=== PATIENT | male | born 1940 | race Caucasian/White ===

== ENCOUNTER 2019-01-04 16:04 | Emergency (ER) | payer MEDICARE, OTHER ==
[~2019-01-04] VITALS: Ht 180.3 cm; Wt 96.6 kg
[2019-01-04 17:04] LABS: BILIRUBIN,URINE NEGATIVE (NEGATIVE); CLARITY,URINE SL CLOUDY (CLEAR); COLOR,URINE YELLOW (YELLOW); KETONES,URINE NEGATIVE (NEGATIVE); LEUKOCYTE ESTERASE ,URINE TRACE (NEGATIVE); NITRITE,URINE NEGATIVE (NEGATIVE); PROTEIN,URINE DIPSTICK NEGATIVE (NEGATIVE); URINE UROBILINOGEN 0.2 mg/dL (0.2 - 1)
[2019-01-04 17:15] LABS: BACTERIA,URINE FEW /HPF
--- NOTE | 2019-01-04 17:56 | NUR ---
Post void residual noted to be 51 mL's. Patient states he feels like he emptied his bladder appropriately.
[2019-01-04] MEDS ORDERED: CEFDINIR300 MG PO (18:25)
[2019-01-04] MEDS ORDERED: FLOMAX0.4 MG PO (18:25)
[2019-01-04 18:30] VITALS: BP 154/81
== END 2019-01-04 18:35 | disposition home or self-care (01) ==
LOC: ER 16:04
DX: R30.0 Dysuria (principal); N30.90 Cystitis, unspecified without hematuria; N40.0 Benign prostatic hyperplasia without lower urinary tract symptoms; I25.10 Atherosclerotic heart disease of native coronary artery without angina pectoris; I10 Essential (primary) hypertension; E78.5 Hyperlipidemia, unspecified; Z95.1 Presence of aortocoronary bypass graft
CPT/HCPCS: 81001; 87086; 87186; 99283

== ENCOUNTER → 2019-05-12 | Day surgery (SDC) | payer MEDICARE, OTHER ==
[2019-05-10 11:59] LABS: BASOPHILS % 0.2 % (0.0-1.0); EOSINOPHILS # (AUTO) 0.2 (0.0-0.4); EOSINOPHILS % 2.9 % (0.0-6.0); HEMATOCRIT 34.2 % (38.2-49.6); HEMOGLOBIN 10.7 g/dL (14.0-18.0); LYMPHOCYTES # (AUTO) 1.1 (1.0-3.2); LYMPHOCYTES % 17.2 % (18.0-39.1); MEAN CORPUSCULAR HEMOGLOBIN 20.5 pg (28-32); MEAN CORPUSCULAR HGB CONC 31.3 g/dL (31-35); MEAN CORPUSCULAR VOLUME 65.5 fL (81-99); MONOCYTES # (AUTO) 0.6 (0.2-0.8); MONOCYTES % 9.4 % (4.4-11.3); NEUTROPHILS # (AUTO) 4.6 (2.1-6.9); NEUTROPHILS % 69.8 % (38.7-80.0); PLATELET COUNT 222 x10e3/uL (140-360); RED BLOOD COUNT 5.22 x10e6/uL (4.3-5.7); RED CELL DISTRIBUTION WIDTH 16.5 % (11.7-14.4)
[2019-05-10 12:19] LABS: INR 0.98; PROTHROMBIN TIME 13.5 seconds (11.9-14.5)
[2019-05-10 12:20] LABS: PARTIAL THROMBOPLASTIN TIME 29.9 seconds (23.8-35.5)
[2019-05-10 12:21] LABS: ALBUMIN 4.2 g/dL (3.5-5.0); ALBUMIN/GLOBULIN RATIO 1.1 (0.8-2.0); ANION GAP 15.2 mmol/L (8-16); CALCIUM 9.7 mg/dL (8.4-10.2); CREATININE, SERUM 1.91 mg/dL (0.72-1.25); POTASSIUM 5.2 mmol/L (3.5-5.1)
[2019-05-10 12:22] LABS: CHOL/HDL RATIO 3.9 (3.9-4.7)
--- NOTE | 2019-05-10 13:44 | Diagnostic Imaging Report ---
EXAMINATION: CHEST 2 VIEWS INDICATION: Preop. Heart catheter ^PREOP FOR LEFT HEART CATHETERIZATION COMPARISON: None FINDINGS: TUBES and LINES: Sternal wires. LUNGS: Lungs are well inflated. Lungs are clear. There is no evidence of pneumonia or pulmonary edema. PLEURA: No pleural effusion or pneumothorax. HEART AND MEDIASTINUM: The cardiomediastinal silhouette is unremarkable. BONES AND SOFT TISSUES: No acute osseous lesion. Soft tissues are unremarkable. UPPER ABDOMEN: No free air under the diaphragm. IMPRESSION: No acute thoracic abnormality. Signed by: Dr. Reinier Greer M.D. on 05/10/2019 1:40 PM
[~2019-05-12] VITALS: Ht 180.3 cm; Wt 98.4 kg
[2019-05-12] VITALS (10 sets, daily range): BP systolic 118–134; BP diastolic 66–95
[~2019-05-12] MED LIST: ASPIR 8181 MG PO; CEFDINIR300 MG PO; FENTANYL CITRATE/PF 100MCG/2 ML INJ ONE; FISH OIL 1,2001 EACH PO; FLOMAX0.4 MG PO; HEPARIN SOD (PORCINE) 1000 UNIT/ML 30ML ONE; HEPARIN SOD/SOD CHLORIDE 2,000 ML ONE; IOPAMIDOL 370 MG/ML 200 ML INFUS..BTL INJ ONE; LIDOCAINE HCL 2% LOCAL 20 ML VIAL ONE; LISINOPRIL10 MG PO; METOPROLOL SUCC50 MG PO; MIDAZOLAM HCL 2 MG/2 ML VIAL ONE; NITROGLYCERIN/D5W 200 MCG/ML 250 ML ONE; SIMVASTATIN20 MG PO; SODIUM CHLORIDE 0.9% 1000ML 1,000 ML ONE; TRIAMTERENE-HCTZ1 EA PO
--- OUTSIDE RECORDS SUMMARY | 2019-05-12 06:12 | XMS REPORT ---
Author Author [facility] Address Unknown Phone Unavailable Care Team Providers Care Risk Compliance Manager Name Role Phone ROGE LAUGHLIN Unavailable Unavailable Problems This patient has no known problems. Allergies, Adverse Reactions, Alerts This patient has no known allergies or adverse reactions. Medications This patient has no known medications. 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 Heart catheter PREOP FOR LEFT HEART CATHETERIZATION COMPARISON: None FINDINGS: TUBES and LINES: Sternal wires. LUNGS: Lungs are well inflated. Lungs are clear. There is no evidence of pneumonia or pulmonary edema. PLEURA: No pleural effusion or pneumothorax. HEART AND MEDIASTINUM: The cardiomediastinal silhouette is unremarkable. BONES AND SOFT TISSUES: No acute osseous lesion. Soft tissues are unremarkable. UPPER ABDOMEN: No free air under the diaphragm. IMPRESSION: No acute thoracic abnormality. Signed by: Dr. Reinier Greer M.D. on 05/10/2019 1:40 PM Dictated By: REINIER GREER MD, MD [id number] Transcribed By: DANIELLE on 05/10/19 1340 COPY TO: ROGE LAUGHLIN MD
--- NOTE | 2019-05-12 08:18 | NUR ---
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 Pt A/A VSS no complaints at this time . Pt received 2mg versed and 50 mcg of fentanyl for procedure. Pt tolerated well. Diagnostic cath with grafts pt rec 250cc fluid bolus and 100cc/hr until dc. Access rt groin closed with angioseal. 2 hrs bedrest
--- NOTE | 2019-05-12 08:45 | NUR ---
0845 bedside report received from Raudel STOUT.Identiferx2 [facility] No fix Dr Whiting via Rt groin with Angioseal. No oozing or hematoma.Alert oriented and appropriate, PERRLA, respirations even and unlabored to room air. Pulses x4 extremities equal and strong. Pedal pulses PT/DP x4 and marked. Cap fill brisk < 3 sec. Skin warm and dry integrity appears D/I. IV 20g to left hand presents healthy w/o s/s of infiltration or complaint. Abdomen soft and supple. pt offered toileting, denies need to urinate or defecate. No personal affects with patient. Pt verbalizes understanding of POC. Currently w/o complaint of pain or need. Tolerating po intake. ds/bk
--- NOTE | 2019-05-12 10:00 | NUR ---
1000amPt meets DC criteria. rt groin Angioseal site assessed for s/s of complication and presence of hematoma. warm, dry, no discolor, and pulses present. IV removed from left hand. Distal tip appears intact. VS WNL. Pt denies pain, sob, or need at this time. Review of discharge paperwork and follow up instructions. verbalized understanding. Pt to wheelchair and transported to front of hospital. Transferred to private vehicle under own strength w/o incident with DC paperwork in hand. ds/rn
--- NOTE | 2019-05-12 10:55 | Operative Report ---
DATE OF PROCEDURE: 05/12/2019 SURGEON: Nacho Whiting MD PROCEDURE: Left heart catheterization with graft. COMPLICATIONS: None. ANESTHESIA: Versed, fentanyl, and lidocaine. TECHNIQUE: The right groin was draped and prepped in the usual fashion. The area was anesthetized with lidocaine. Standard Seldinger technique was used to selectively engage the right femoral artery and placed 6-Turkish sheath. A JL4 catheter was used to selectively engage the left coronary artery, a 3DRC catheter was used to selectively engage the right coronary artery and a sequential saphenous vein graft to the 1st and 2nd obtuse marginal branch. The right internal coronary artery catheter was used to selectively engage the saphenous vein graft to the right coronary artery. A left internal mammary artery catheter was used to selectively engage the left internal mammary artery graft to the left anterior descending artery. An Angio-Seal device was used for closure. There were no complications. RESULTS: 1. There is a normal left main trunk. 2. There is a large left anterior descending artery, which gave rise to a medium-sized diagonal branch with about 80% stenosis in the midportion of the left anterior descending artery. 3. There was a medium-sized AV circumflex artery, which gave rise to a large bifurcating obtuse marginal branch and a smaller 2nd obtuse marginal branch. The 1st obtuse marginal branch was 100% occluded at its origin and the 2nd obtuse marginal branch was diffusely diseased up to 100% proximal. 4. 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 5. A left ventriculogram was not done due to the elevated creatinine. 6. The left internal mammary artery graft to the left anterior descending artery was widely patent. 7. The sequential saphenous vein graft to the 1st and 2nd obtuse marginal branches of the circumflex artery were widely patent. 8. The saphenous vein graft to the right coronary artery was widely patent. CONCLUSION: The patient has a patent left internal mammary artery graft to the left anterior descending artery, a patent saphenous vein graft to the right coronary artery, and a patent sequential saphenous vein graft to the 1st and 2nd obtuse marginal branches. I would favor a medical management. Nacho Whiting MD [facility]/MODL /[id number] cc: Taras Nix MD
== END | disposition home or self-care (01) ==
LOC: CATH LAB 06:10
PROVIDERS: ATTEND Internal Medicine Cardiovascular Disease
DX: I25.708 Atherosclerosis of coronary artery bypass graft(s), unspecified, with other forms of angina pectoris (principal); I10 Essential (primary) hypertension; Z95.1 Presence of aortocoronary bypass graft; Z01.810 Encounter for preprocedural cardiovascular examination; Z01.812 Encounter for preprocedural laboratory examination; Z01.811 Encounter for preprocedural respiratory examination; Z87.891 Personal history of nicotine dependence; Z79.82 Long term (current) use of aspirin; M19.90 Unspecified osteoarthritis, unspecified site; Z82.49 Family history of ischemic heart disease and other diseases of the circulatory system; I48.91 Unspecified atrial fibrillation
CPT/HCPCS: 36415; 71046; 80053; 80061; 85025; 85610; 85730; 93005; 93455; J1644; J2001; J2250; J3010; J7030; Q9967; C1760

== ENCOUNTER → 2019-07-18 | Outpatient (CLI) | payer MEDICARE, OTHER ==
[~2019-07-18] MED LIST changes: -FENTANYL CITRATE/PF 100MCG/2 ML INJ ONE; -HEPARIN SOD (PORCINE) 1000 UNIT/ML 30ML ONE; -HEPARIN SOD/SOD CHLORIDE 2,000 ML ONE; -IOPAMIDOL 370 MG/ML 200 ML INFUS..BTL INJ ONE; -LIDOCAINE HCL 2% LOCAL 20 ML VIAL ONE; -MIDAZOLAM HCL 2 MG/2 ML VIAL ONE; -NITROGLYCERIN/D5W 200 MCG/ML 250 ML ONE; -SODIUM CHLORIDE 0.9% 1000ML 1,000 ML ONE
--- NOTE | 2019-07-18 12:38 | Diagnostic Imaging Report ---
EXAM: Renal Ultrasound INDICATION: ^[id number] ^[id number] ^ACUTE KIDNEY FAILURE COMPARISON: None TECHNIQUE: Transverse and longitudinal images of the kidneys and bladder were obtained. FINDINGS: Right Kidney: Length: 9.4 cm Appearance: Normal echogenicity. Collecting system: No hydronephrosis Stones: None Cyst/Mass: None Left Kidney: Length: 10.8 cm Appearance: Normal echogenicity. Collecting system: No hydronephrosis Stones: None Cyst/Mass: None Bladder: No focal mass or calculi. Bilateral ureteral jets not seen. Prevoid volume estimate of 39.9 cc. Postvoid images demonstrate complete emptying of the bladder. IMPRESSION: No renal calculi or hydronephrosis. Signed by: Donny Lagunas MD on 07/18/2019 12:34 PM
--- NOTE | 2019-07-18 12:38 | Diagnostic Imaging Report ---
EXAM: Renal Ultrasound INDICATION: ^[id number] ^[id number] ^ACUTE KIDNEY FAILURE COMPARISON: None TECHNIQUE: Transverse and longitudinal images of the kidneys and bladder were obtained. FINDINGS: Right Kidney: Length: 9.4 cm Appearance: Normal echogenicity. Collecting system: No hydronephrosis Stones: None Cyst/Mass: None Left Kidney: Length: 10.8 cm Appearance: Normal echogenicity. Collecting system: No hydronephrosis Stones: None Cyst/Mass: None Bladder: No focal mass or calculi. Bilateral ureteral jets not seen. Prevoid volume estimate of 39.9 cc. Postvoid images demonstrate complete emptying of the bladder. IMPRESSION: No renal calculi or hydronephrosis. Signed by: Donny Lagunas MD on 07/18/2019 12:34 PM
== END ==
LOC: US 09:20
PROVIDERS: ATTEND Internal Medicine Nephrology
DX: N17.9 Acute kidney failure, unspecified (principal)
CPT/HCPCS: 76770; 76857

== ENCOUNTER → 2022-02-19 | Day surgery (SDC) | payer MEDICARE, OTHER ==
[2022-02-18 11:27] LABS: BASOPHILS % 0.2 % (0.0-1.0); EOSINOPHILS # (AUTO) 0.1 (0.0-0.4); EOSINOPHILS % 0.9 % (0.0-6.0); HEMOGLOBIN 11.6 g/dL (14.0-18.0); LYMPHOCYTES # (AUTO) 0.9 (1.0-3.2); LYMPHOCYTES % 16.5 % (18.0-39.1); MEAN CORPUSCULAR HEMOGLOBIN 20.9 pg (28-32); MEAN CORPUSCULAR HGB CONC 31.4 g/dL (31-35); MEAN CORPUSCULAR VOLUME 66.8 fL (81-99); MONOCYTES # (AUTO) 0.6 (0.2-0.8); MONOCYTES % 10.9 % (4.4-11.3); NEUTROPHILS # (AUTO) 3.8 (2.1-6.9); NEUTROPHILS % 71.1 % (38.7-80.0); PLATELET COUNT 200 x10e3/uL (140-360); RED BLOOD COUNT 5.54 x10e6/uL (4.3-5.7); RED CELL DISTRIBUTION WIDTH 15.9 % (11.7-14.4)
[~2022-02-19] MED LIST changes: +ELIQUIS2.5 MG PO; +LEVOTHYROXINE50 MCG PO; +POVIDONE IODINE 0.05% 0.05 % ML PO ONE; +PROPOFOL IV EMULSION 10 MG/ML 20 ML VIAL ONE
[2022-02-19 09:45] VITALS: BP 110/62
== END | disposition home or self-care (01) ==
LOC: OR 06:23
PROVIDERS: ATTEND Internal Medicine Gastroenterology
DX: Z12.11 Encounter for screening for malignant neoplasm of colon (principal); D12.2 Benign neoplasm of ascending colon; K57.30 Diverticulosis of large intestine without perforation or abscess without bleeding; K64.8 Other hemorrhoids; Z71.3 Dietary counseling and surveillance; I10 Essential (primary) hypertension; E66.3 Overweight; I25.810 Atherosclerosis of coronary artery bypass graft(s) without angina pectoris; I48.91 Unspecified atrial fibrillation; Z01.810 Encounter for preprocedural cardiovascular examination; Z01.812 Encounter for preprocedural laboratory examination; Z20.822 Contact with and (suspected) exposure to COVID-19; Z79.02 Long term (current) use of antithrombotics/antiplatelets; Z79.82 Long term (current) use of aspirin; Z79.899 Other long term (current) drug therapy; Z68.28 Body mass index [BMI] 28.0-28.9, adult; Z95.1 Presence of aortocoronary bypass graft
CPT/HCPCS: 36415; 45385; 85025; 93005; J2704; U0002; 45378

== ENCOUNTER → 2023-01-06 | Outpatient (CLI) | payer MEDICARE ==
[~2023-01-06] MED LIST changes: -POVIDONE IODINE 0.05% 0.05 % ML PO ONE; -PROPOFOL IV EMULSION 10 MG/ML 20 ML VIAL ONE
== END ==
LOC: CARD 11:00
PROVIDERS: ATTEND Internal Medicine
DX: I79.8 Other disorders of arteries, arterioles and capillaries in diseases classified elsewhere (principal)
CPT/HCPCS: 93925